=== PATIENT | female | born 1980 | race Caucasian/White ===

== ENCOUNTER 2019-12-31 04:53 | Inpatient (IN) | payer MEDICAID, OTHER ==
[~2019-12-31] VITALS: Ht 157.5 cm; Wt 70.3 kg
[~2019-12-31 04:53] MED LIST: DIPH25 PO; GABA-1181 PO; LISI-660 PO; LITH300C3 PO; OXCA300T57 PO; SERT100T12 PO; TRAZ-257 PO
[2019-12-31] MEDS ORDERED: IBUP-2071 PO (05:06)
[2019-12-31] MEDS ORDERED: CLON0.1T83 PO (05:06)
[2019-12-31] MEDS ORDERED: KETOROLAC TROMETHAMINE 30 MG/ML VIAL IM ONE (05:30)
[2019-12-31] MEDS ORDERED: CeFAZolin 1 GM/DEXTROSE 50 ML IV ONE (07:00)
[2019-12-31] MEDS ORDERED: ONDANSETRON HCL 4 MG/2 ML VIAL IVP PRN (07:15)
[2019-12-31] MEDS ORDERED: ACETAMINOPHEN 325 MG TABLET PO PRN ×2 (07:15→08:00)
[2019-12-31] MEDS ORDERED: 0.9% SODIUM CHLORIDE 10 ML SYRINGE IVP PRN ×2 (07:15→08:00)
[2019-12-31 07:36] LABS: BASOPHILS % (AUTO) 0.6 % (0.0-2.0); EOSINOPHILS % (AUTO) 0.7 % (1.0-6.0); HEMATOCRIT 37.3 % (36-46); HEMOGLOBIN 12.1 g/dL (12.0-16.0); LYMPHOCYTES # (AUTO) 2.2 K/uL (1.0-4.8); LYMPHOCYTES % (AUTO) 18.3 % (22.0-44.0); MEAN CORPUSCULAR HEMOGLOBIN 26.9 pg (26.0-34.0); MEAN CORPUSCULAR HGB CONC 32.6 G/dL (31.0-37.0); MEAN CORPUSCULAR VOLUME 83 fL (80-100); MONOCYTES # (AUTO) 1.4 K/uL (0.1-1.0); MONOCYTES % (AUTO) 11.2 % (2.0-9.0); NEUTROPHILS # (AUTO) 8.5 K/uL (1.8-7.7); NEUTROPHILS % (AUTO) 69.2 % (40.0-70.0); RED BLOOD CELL COUNT(AUTO) 4.52 MIL/uL (4.00-5.20); RED CELL DISTRIBUTION WIDTH 14.9 % (11.5-14.5)
[2019-12-31 07:42] LABS: ANION GAP 8 mmol/L (8-16); CALCIUM, TOTAL 8.3 mg/dL (8.8-10.5); CARBON DIOXIDE 26 mmol/L (22-29); CHLORIDE 104 mmol/L (98-107); CREATININE 0.74 mg/dL (0.60-1.30); GLOMERULAR FILTR. RATE CALC > 60 mL/min (>60); GLUCOSE,RANDOM 107 mg/dL (70-110); POTASSIUM 3.4 mmol/L (3.5-5.1); SODIUM SERUM 138 mmol/L (136-145); UREA NITROGEN, BLOOD 8 mg/dL (7-18)
[2019-12-31 07:48] LABS: ALANINE AMINOTRANSFERASE 19 U/L (12-78); ALBUMIN 2.5 g/dL (3.4-5.0); ALKALINE PHOSPHATASE 69 U/L (46-116); ASPARTATE AMINOTRANSFERASE 23 U/L (15-37); BILIRUBIN,TOTAL 0.3 mg/dL (0.1-1.0)
[2019-12-31] MEDS ORDERED: SODIUM CHLORIDE 0.9% 1,000 ML IV SCH (08:00)
[2019-12-31] MEDS ORDERED: BISACODYL 10 MG RECTAL RECTAL SUPPOSITORY PR PRN (08:00)
[2019-12-31] MEDS ORDERED: ALBUTEROL SULFATE 2.5 MG/0.5 ML NEB SOLUTION NEB PRN (08:00)
[2019-12-31] MEDS ORDERED: IPRATROPIUM BROMIDE 0.5 MG/2.5 ML NEB SOLUTION NEB PRN (08:00)
[2019-12-31] MEDS ORDERED: DOCUSATE SODIUM 100 MG CAPSULE PO PRN (08:00)
[2019-12-31] MEDS ORDERED: MORPHINE SULFATE 2 MG/ML SYRINGE IVP PRN (08:00)
[2019-12-31] MEDS ORDERED: MAGNESIUM HYDROXIDE SUSPENSION 30 ML UDCUP PO PRN (08:00)
[2019-12-31] MEDS ORDERED: POTASSIUM CHLORIDE 10% 40 MEQ/30 ML LIQUID UDCUP PO ONE (08:30)
[2019-12-31 08:47] VITALS: BP 138/83
[2019-12-31] MEDS ORDERED: IOVERSOL 320 MG/ML 100 ML VIAL ONE (08:47)
[2019-12-31] MEDS ORDERED: SODIUM CHLORIDE 0.9% 100 ML ONE (08:47)
[2019-12-31 08:57] LABS: PLATELET COUNT (AUTO) 772 K/uL (150-450)
[2019-12-31] MEDS: CloNIDine HCL 0.1 MG TABLET PO SCH ×3 (09:00→21:01)
[2019-12-31] MEDS: PANTOPRAZOLE SODIUM 40 MG DR TABLET PO SCH (09:00)
[2019-12-31] MEDS: ONDANSETRON HCL 4 MG/2 ML VIAL IVP PRN (09:17)
[2019-12-31 09:35] LABS: APPEARANCE,URINE CLEAR (CLEAR); BILIRUBIN,URINE NEGATIVE (NEGATIVE); GLUCOSE, URINE (UA) NEGATIVE (NEGATIVE); KETONES,URINE NEGATIVE (NEGATIVE); LEUKOCYTE ESTERASE ,URINE NEGATIVE (NEGATIVE); NITRATE,URINE NEGATIVE (NEGATIVE); OCCULT BLOOD,URINE NEGATIVE (NEGATIVE); PH,URINE 6.5 (5.0-8.0); PROTEIN,URINE NEGATIVE (NEGATIVE); UROBILINOGEN,URINE 0.2 mg/dL (<=1.0)
[2019-12-31 09:41] LABS: AMPHET/METH SCREEN,URINE NEGATIVE (NEGATIVE); BARBITURATE SCREEN, URINE NEGATIVE (NEGATIVE); BENZODIAZEPINES SCREEN,URINE NEGATIVE (NEGATIVE); CANNABINOID SCREEN,URINE POSITIVE (NEGATIVE); COCAINE SCREEN,URINE NEGATIVE (NEGATIVE); METHADONE SCREEN, URINE NEGATIVE (NEGATIVE); OPIATE SCREEN,URINE POSITIVE (NEGATIVE); PHENCYCLIDINE SCREEN,URINE NEGATIVE (NEGATIVE)
[2019-12-31 11:22] LABS: COVID AG,FIA SOURCE NASOPHARYNGEAL
[2019-12-31] MEDS ORDERED: RINGERS SOLUTION,LACTATED 1,000 ML IV ONE (11:26)
[2019-12-31] MEDS ORDERED: BUPIVACAINE/EPI/PF 0.5% 30 ML VIAL ONE (11:50)
[2019-12-31] MEDS ORDERED: BUPIVACAINE HCL/PF 0.25% 30 ML VIAL ONE (11:50)
[2019-12-31] MEDS ORDERED: SUGAMMADEX SODIUM 200 MG/2 ML VIAL IVP ONE (11:53)
[2019-12-31] MEDS ORDERED: MEPERIDINE-PF 25 MG/ML VIAL IVP PRN (12:00)
[2019-12-31] MEDS ORDERED: ONDANSETRON HCL 4 MG/2 ML VIAL IVP ONE (12:00)
[2019-12-31] MEDS ORDERED: FentaNYL CITRATE-PF 100 MCG/2 ML VIAL IVP PRN (12:00)
[2019-12-31] MEDS ORDERED: ROCURONIUM BROMIDE 10 MG/ML 5 ML VIAL IVP ONE (12:00)
[2019-12-31] MEDS ORDERED: LIDOCAINE/PF 2% 5 ML VIAL INJ ONE (12:00)
[2019-12-31] MEDS ORDERED: KETAMINE HCL 50 MG/ML 10 ML VIAL IVP ONE (12:00)
[2019-12-31] MEDS ORDERED: PROPOFOL 1% 20 ML VIAL IVP ONE (12:00)
[2019-12-31] MEDS ORDERED: DEXAMETHASONE SOD PHOS 4 MG/ML VIAL IVP ONE (12:00)
[2019-12-31] MEDS ORDERED: MIDAZOLAM HCL 2 MG/2 ML VIAL IVP ONE (12:00)
[2019-12-31] MEDS ORDERED: FentaNYL CITRATE-PF 100 MCG/2 ML VIAL IVP ONE (12:00)
[2019-12-31] MEDS: FAMOTIDINE 20 MG TABLET PO SCH ×2 (12:15→21:01)
[2019-12-31] MEDS ORDERED: HYDROmorphone 2 MG/ML SYRINGE ONE (12:24)
[2019-12-31] MEDS: HYDROmorphone 2 MG/ML SYRINGE IVP PRN ×5 (12:27→22:23)
[2019-12-31] MEDS: CefTRIAXone SODIUM 2 GM in DEXTROSE 5%-WATER 50 ML IV SCH (13:48)
[2019-12-31 19:22] VITALS: BP 106/58
[2019-12-31 19:25] VITALS: BP 106/58
[2019-12-31] MEDS: TraZODone HCL 50 MG TABLET PO SCH (21:01)
[2020-01-01] MEDS: MORPHINE SULFATE 4 MG/ML SYRINGE IVP PRN ×4 (00:14→22:11)
[2020-01-01] MEDS: HYDROmorphone 2 MG/ML SYRINGE IVP PRN ×3 (03:17→20:45)
[2020-01-01 04:22] VITALS: BP 94/63
[2020-01-01] MEDS: ONDANSETRON HCL 4 MG/2 ML VIAL IVP PRN (06:20)
[2020-01-01] MEDS: PANTOPRAZOLE SODIUM 40 MG DR TABLET PO SCH (08:06)
[2020-01-01] MEDS: FAMOTIDINE 20 MG TABLET PO SCH ×2 (08:06→20:19)
[2020-01-01] MEDS: CloNIDine HCL 0.1 MG TABLET PO SCH ×3 (08:06→20:18)
[2020-01-01 08:16] VITALS: BP 117/57
[2020-01-01] MEDS: ALPRAZolam 0.25 MG TABLET PO PRN ×2 (11:11→11:14)
[2020-01-01 11:15] VITALS: BP 102/71
[2020-01-01 12:29] LABS: BASOPHILS % (AUTO) 0.7 % (0.0-2.0); EOSINOPHILS % (AUTO) 1.6 % (1.0-6.0); HEMOGLOBIN 12.2 g/dL (12.0-16.0); LYMPHOCYTES # (AUTO) 2.7 K/uL (1.0-4.8); LYMPHOCYTES % (AUTO) 24.3 % (22.0-44.0); MEAN CORPUSCULAR HEMOGLOBIN 26.7 pg (26.0-34.0); MEAN CORPUSCULAR HGB CONC 32.2 G/dL (31.0-37.0); MEAN CORPUSCULAR VOLUME 83 fL (80-100); MONOCYTES # (AUTO) 0.8 K/uL (0.1-1.0); MONOCYTES % (AUTO) 7.4 % (2.0-9.0); NEUTROPHILS # (AUTO) 7.3 K/uL (1.8-7.7); PLATELET COUNT (AUTO) 675 K/uL (150-450); RED BLOOD CELL COUNT(AUTO) 4.58 MIL/uL (4.00-5.20); RED CELL DISTRIBUTION WIDTH 14.9 % (11.5-14.5)
[2020-01-01 12:41] LABS: ANION GAP 5 mmol/L (8-16); CALCIUM, TOTAL 8.6 mg/dL (8.8-10.5); CARBON DIOXIDE 28 mmol/L (22-29); CHLORIDE 104 mmol/L (98-107); CREATININE 0.82 mg/dL (0.60-1.30); GLOMERULAR FILTR. RATE CALC > 60 mL/min (>60); GLUCOSE,RANDOM 93 mg/dL (70-110); POTASSIUM 3.2 mmol/L (3.5-5.1); SODIUM SERUM 137 mmol/L (136-145); UREA NITROGEN, BLOOD 12 mg/dL (7-18)
[2020-01-01] MEDS: CefTRIAXone SODIUM 2 GM in DEXTROSE 5%-WATER 50 ML IV SCH (13:55)
[2020-01-01] MEDS ORDERED: POTASSIUM CHLORIDE 10% 40 MEQ/30 ML LIQUID UDCUP PO ONE (14:15)
[2020-01-01] MEDS ORDERED: SODIUM CL IRRIG SOLN BOTTLE 250 ML IRRIG ONE (14:52)
[2020-01-01 15:20] VITALS: BP 138/61
[2020-01-01] MEDS: CLINDAMYCIN 600 MG/D5% WATER 50 ML IV SCH ×2 (16:13→23:25)
[2020-01-01 20:06] VITALS: BP 94/44
[2020-01-01] MEDS: TraZODone HCL 50 MG TABLET PO SCH (20:19)
[2020-01-02] VITALS (7 sets, daily range): BP systolic 109–135; BP diastolic 62–80
[2020-01-02] MEDS: MORPHINE SULFATE 4 MG/ML SYRINGE IVP PRN ×4 (02:48→22:32)
[2020-01-02] MEDS: HYDROmorphone 2 MG/ML SYRINGE IVP PRN ×6 (03:30→20:51)
[2020-01-02 06:16] LABS: BASOPHILS % (AUTO) 0.6 % (0.0-2.0); EOSINOPHILS % (AUTO) 1.8 % (1.0-6.0); HEMATOCRIT 41.4 % (36-46); HEMOGLOBIN 13.2 g/dL (12.0-16.0); LYMPHOCYTES # (AUTO) 1.6 K/uL (1.0-4.8); LYMPHOCYTES % (AUTO) 10.4 % (22.0-44.0); MEAN CORPUSCULAR HEMOGLOBIN 26.5 pg (26.0-34.0); MEAN CORPUSCULAR HGB CONC 31.9 G/dL (31.0-37.0); MEAN CORPUSCULAR VOLUME 83 fL (80-100); MONOCYTES # (AUTO) 0.9 K/uL (0.1-1.0); NEUTROPHILS # (AUTO) 12.7 K/uL (1.8-7.7); NEUTROPHILS % (AUTO) 81.2 % (40.0-70.0); PLATELET COUNT (AUTO) 664 K/uL (150-450); RED BLOOD CELL COUNT(AUTO) 4.99 MIL/uL (4.00-5.20); RED CELL DISTRIBUTION WIDTH 15.2 % (11.5-14.5)
[2020-01-02] MEDS: ALPRAZolam 0.25 MG TABLET PO PRN (06:23)
[2020-01-02 06:54] LABS: ANION GAP 10 mmol/L (8-16); CALCIUM, TOTAL 8.6 mg/dL (8.8-10.5); CARBON DIOXIDE 25 mmol/L (22-29); CHLORIDE 101 mmol/L (98-107); CREATININE 0.83 mg/dL (0.60-1.30); GLOMERULAR FILTR. RATE CALC > 60 mL/min (>60); GLUCOSE,RANDOM 96 mg/dL (70-110); POTASSIUM 4.8 mmol/L (3.5-5.1); SODIUM SERUM 136 mmol/L (136-145); UREA NITROGEN, BLOOD 13 mg/dL (7-18)
[2020-01-02] MEDS: CLINDAMYCIN 600 MG/D5% WATER 50 ML IV SCH ×2 (08:54→16:00)
[2020-01-02] MEDS: CloNIDine HCL 0.1 MG TABLET PO SCH ×3 (08:54→21:00)
[2020-01-02] MEDS: FAMOTIDINE 20 MG TABLET PO SCH ×2 (08:54→20:51)
[2020-01-02] MEDS: PANTOPRAZOLE SODIUM 40 MG DR TABLET PO SCH (08:58)
[2020-01-02] MEDS: CefTRIAXone 1 GM/DEXTROSE 50 ML IV SCH (13:55)
[2020-01-02] MEDS: ONDANSETRON HCL 4 MG/2 ML VIAL IVP PRN (18:02)
[2020-01-02] MEDS: TraZODone HCL 50 MG TABLET PO SCH (20:51)
[2020-01-03] MEDS: CLINDAMYCIN 600 MG/D5% WATER 50 ML IV SCH ×2 (00:47→09:17)
[2020-01-03] MEDS: HYDROmorphone 2 MG/ML SYRINGE IVP PRN ×6 (00:48→20:38)
[2020-01-03 04:50] VITALS: BP 125/66
[2020-01-03] MEDS: MORPHINE SULFATE 4 MG/ML SYRINGE IVP PRN ×5 (04:50→22:25)
[2020-01-03 06:20] LABS: BASOPHILS % (AUTO) 0.4 % (0.0-2.0); EOSINOPHILS % (AUTO) 1.2 % (1.0-6.0); HEMATOCRIT 35.9 % (36-46); HEMOGLOBIN 11.7 g/dL (12.0-16.0); LYMPHOCYTES # (AUTO) 1.9 K/uL (1.0-4.8); LYMPHOCYTES % (AUTO) 11.6 % (22.0-44.0); MEAN CORPUSCULAR HGB CONC 32.6 G/dL (31.0-37.0); MEAN CORPUSCULAR VOLUME 83 fL (80-100); MONOCYTES # (AUTO) 1.9 K/uL (0.1-1.0); MONOCYTES % (AUTO) 11.3 % (2.0-9.0); NEUTROPHILS # (AUTO) 12.6 K/uL (1.8-7.7); NEUTROPHILS % (AUTO) 75.5 % (40.0-70.0); PLATELET COUNT (AUTO) 629 K/uL (150-450); RED BLOOD CELL COUNT(AUTO) 4.35 MIL/uL (4.00-5.20); RED CELL DISTRIBUTION WIDTH 15.1 % (11.5-14.5)
[2020-01-03 06:34] LABS: ALANINE AMINOTRANSFERASE 9 U/L (12-78); ALBUMIN 2.1 g/dL (3.4-5.0); ALKALINE PHOSPHATASE 67 U/L (46-116); ANION GAP 8 mmol/L (8-16); ASPARTATE AMINOTRANSFERASE 11 U/L (15-37); BILIRUBIN,TOTAL 0.3 mg/dL (0.1-1.0); CALCIUM, TOTAL 8.6 mg/dL (8.8-10.5); CARBON DIOXIDE 26 mmol/L (22-29); CHLORIDE 103 mmol/L (98-107); CREATININE 0.67 mg/dL (0.60-1.30); GLOMERULAR FILTR. RATE CALC > 60 mL/min (>60); GLUCOSE,RANDOM 102 mg/dL (70-110); POTASSIUM 3.7 mmol/L (3.5-5.1); SODIUM SERUM 137 mmol/L (136-145); TOTAL PROTEIN, SERUM 6.3 g/dL (6.4-8.2); UREA NITROGEN, BLOOD 10 mg/dL (7-18)
[2020-01-03] MEDS: FAMOTIDINE 20 MG TABLET PO SCH ×2 (07:57→20:39)
[2020-01-03] MEDS: CloNIDine HCL 0.1 MG TABLET PO SCH ×4 (07:57→20:44)
[2020-01-03] MEDS: HYDROCODONE/ACETAMINOPHEN 5-325 MG TABLET PO PRN (07:57)
[2020-01-03] MEDS: OXYGEN THERAPY IH SCH ×2 (08:00→20:00)
[2020-01-03 08:01] VITALS: BP 143/74
[2020-01-03] MEDS: PANTOPRAZOLE SODIUM 40 MG DR TABLET PO SCH (08:07)
[2020-01-03] MEDS: ONDANSETRON HCL 4 MG/2 ML VIAL IVP PRN (09:18)
[2020-01-03] MEDS ORDERED: SODIUM CHLORIDE 0.9% 1,000 ML IV ONE (12:15)
[2020-01-03] MEDS ORDERED: VANCOMYCIN HCL 1.5 GM in DEXTROSE 5%-WATER 250 ML IV ONE (13:00)
[2020-01-03] MEDS: CefTRIAXone 1 GM/DEXTROSE 50 ML IV SCH (15:00)
[2020-01-03 16:16] VITALS: BP 114/56
[2020-01-03] MEDS: TraZODone HCL 50 MG TABLET PO SCH (20:39)
[2020-01-03 20:49] VITALS: BP 94/62
[2020-01-03] MEDS: VANCOMYCIN HCL 1 GM/D5% WATER 200 ML IV SCH (23:32)
[2020-01-04] MEDS: HYDROmorphone 2 MG/ML SYRINGE IVP PRN ×6 (00:23→22:34)
[2020-01-04] MEDS: ALPRAZolam 0.25 MG TABLET PO PRN (00:24)
[2020-01-04 05:10] VITALS: BP 115/74
[2020-01-04] MEDS: ONDANSETRON HCL 4 MG/2 ML VIAL IVP PRN (05:55)
[2020-01-04] MEDS: MORPHINE SULFATE 4 MG/ML SYRINGE IVP PRN ×2 (06:47→12:33)
[2020-01-04] MEDS: OXYGEN THERAPY IH SCH ×3 (08:00→20:00)
[2020-01-04 08:37] VITALS: BP 135/90
[2020-01-04] MEDS: VANCOMYCIN HCL 1 GM/D5% WATER 200 ML IV SCH ×3 (09:12→23:51)
[2020-01-04] MEDS: CloNIDine HCL 0.1 MG TABLET PO SCH ×3 (09:13→21:00)
[2020-01-04] MEDS: FAMOTIDINE 20 MG TABLET PO SCH ×2 (09:13→19:47)
[2020-01-04] MEDS: PANTOPRAZOLE SODIUM 40 MG DR TABLET PO SCH (09:13)
[2020-01-04 11:05] LABS: BASOPHILS % (AUTO) 0.5 % (0.0-2.0); EOSINOPHILS % (AUTO) 1.2 % (1.0-6.0); HEMATOCRIT 35.7 % (36-46); HEMOGLOBIN 11.7 g/dL (12.0-16.0); LYMPHOCYTES # (AUTO) 1.3 K/uL (1.0-4.8); LYMPHOCYTES % (AUTO) 9.6 % (22.0-44.0); MEAN CORPUSCULAR HEMOGLOBIN 27.4 pg (26.0-34.0); MEAN CORPUSCULAR HGB CONC 32.9 G/dL (31.0-37.0); MEAN CORPUSCULAR VOLUME 83 fL (80-100); MONOCYTES # (AUTO) 1.3 K/uL (0.1-1.0); MONOCYTES % (AUTO) 9.8 % (2.0-9.0); NEUTROPHILS # (AUTO) 10.4 K/uL (1.8-7.7); NEUTROPHILS % (AUTO) 78.9 % (40.0-70.0); PLATELET COUNT (AUTO) 638 K/uL (150-450); RED BLOOD CELL COUNT(AUTO) 4.29 MIL/uL (4.00-5.20); RED CELL DISTRIBUTION WIDTH 15.5 % (11.5-14.5)
[2020-01-04 11:19] LABS: PROTHROMBIN TIME 10.9 SEC (9.4-11.6)
[2020-01-04 11:29] LABS: ALANINE AMINOTRANSFERASE 11 U/L (12-78); ALBUMIN 1.8 g/dL (3.4-5.0); ALKALINE PHOSPHATASE 62 U/L (46-116); ANION GAP 5 mmol/L (8-16); ASPARTATE AMINOTRANSFERASE 11 U/L (15-37); BILIRUBIN,TOTAL 0.2 mg/dL (0.1-1.0); CARBON DIOXIDE 25 mmol/L (22-29); CHLORIDE 107 mmol/L (98-107); CREATININE 0.62 mg/dL (0.60-1.30); GLOMERULAR FILTR. RATE CALC > 60 mL/min (>60); GLUCOSE,RANDOM 111 mg/dL (70-110); POTASSIUM 3.9 mmol/L (3.5-5.1); SODIUM SERUM 137 mmol/L (136-145); TOTAL PROTEIN, SERUM 6.4 g/dL (6.4-8.2); UREA NITROGEN, BLOOD 8 mg/dL (7-18)
[2020-01-04] MEDS: SODIUM CHLORIDE 0.9% 1,000 ML IV SCH (11:32)
[2020-01-04] MEDS: CefTRIAXone 1 GM/DEXTROSE 50 ML IV SCH (14:07)
[2020-01-04] MEDS: MULTIVITAMINS WITH MINERALS, THERAPEUTIC TABLET PO SCH (14:15)
[2020-01-04] MEDS ORDERED: BUPIVACAINE/EPI/PF 0.5% 30 ML VIAL ONE (15:04)
[2020-01-04 16:00] VITALS: BP 102/58
[2020-01-04] MEDS ORDERED: RINGERS SOLUTION,LACTATED 1,000 ML IV ONE ×2 (16:00→16:56)
[2020-01-04] MEDS ORDERED: FentaNYL CITRATE-PF 100 MCG/2 ML VIAL IVP PRN (16:30)
[2020-01-04] MEDS ORDERED: HYDROmorphone 2 MG/ML SYRINGE IVP PRN (16:30)
[2020-01-04] MEDS ORDERED: MEPERIDINE-PF 25 MG/ML VIAL IVP PRN (16:30)
[2020-01-04] MEDS ORDERED: BACITRACIN 50,000 UNITS/VIAL ONE (17:30)
[2020-01-04] MEDS ORDERED: HYDROmorphone 2 MG/ML SYRINGE ONE (18:17)
[2020-01-04] MEDS ORDERED: MEPERIDINE-PF 25 MG/ML VIAL ONE (18:27)
[2020-01-04] MEDS: TraZODone HCL 50 MG TABLET PO SCH (19:47)
[2020-01-04 20:30] VITALS: BP 113/60
[2020-01-05] MEDS: HYDROmorphone 2 MG/ML SYRINGE IVP PRN ×5 (01:54→19:43)
[2020-01-05] MEDS: SODIUM CHLORIDE 0.9% 1,000 ML IV SCH ×2 (03:11→20:36)
[2020-01-05 05:35] VITALS: BP 113/75
[2020-01-05 06:55] LABS: ANION GAP 12 mmol/L (8-16); CALCIUM, TOTAL 8.2 mg/dL (8.8-10.5); CARBON DIOXIDE 27 mmol/L (22-29); CHLORIDE 102 mmol/L (98-107); CREATININE 0.74 mg/dL (0.60-1.30); GLOMERULAR FILTR. RATE CALC > 60 mL/min (>60); GLUCOSE,RANDOM 111 mg/dL (70-110); POTASSIUM 3.9 mmol/L (3.5-5.1); SODIUM SERUM 141 mmol/L (136-145); UREA NITROGEN, BLOOD 11 mg/dL (7-18)
[2020-01-05 08:00] VITALS: BP 130/77
[2020-01-05] MEDS: OXYGEN THERAPY IH SCH (08:00)
[2020-01-05] MEDS: PANTOPRAZOLE SODIUM 40 MG DR TABLET PO SCH (08:03)
[2020-01-05] MEDS: MULTIVITAMINS WITH MINERALS, THERAPEUTIC TABLET PO SCH (08:03)
[2020-01-05] MEDS: HYDROCODONE/ACETAMINOPHEN 5-325 MG TABLET PO PRN (08:03)
[2020-01-05] MEDS: VANCOMYCIN HCL 1 GM/D5% WATER 200 ML IV SCH ×3 (08:03→23:27)
[2020-01-05] MEDS: FAMOTIDINE 20 MG TABLET PO SCH ×2 (08:03→20:13)
[2020-01-05] MEDS: CloNIDine HCL 0.1 MG TABLET PO SCH ×3 (08:03→20:13)
[2020-01-05 08:31] LABS: BASOPHILS % (AUTO) 1.2 % (0.0-2.0); EOSINOPHILS % (AUTO) 2.5 % (1.0-6.0); HEMATOCRIT 36.9 % (36-46); HEMOGLOBIN 12.1 g/dL (12.0-16.0); LYMPHOCYTES # (AUTO) 1.7 K/uL (1.0-4.8); LYMPHOCYTES % (AUTO) 18.7 % (22.0-44.0); MEAN CORPUSCULAR HGB CONC 32.6 G/dL (31.0-37.0); MEAN CORPUSCULAR VOLUME 83 fL (80-100); MONOCYTES % (AUTO) 11.6 % (2.0-9.0); NEUTROPHILS # (AUTO) 5.8 K/uL (1.8-7.7); PLATELET COUNT (AUTO) 693 K/uL (150-450); RED BLOOD CELL COUNT(AUTO) 4.47 MIL/uL (4.00-5.20); RED CELL DISTRIBUTION WIDTH 15.3 % (11.5-14.5)
[2020-01-05] MEDS: MORPHINE SULFATE 4 MG/ML SYRINGE IVP PRN ×2 (11:16→20:36)
[2020-01-05] MEDS: CefTRIAXone 1 GM/DEXTROSE 50 ML IV SCH (14:53)
[2020-01-05 16:00] VITALS: BP 125/75
[2020-01-05] MEDS: TraZODone HCL 50 MG TABLET PO SCH (20:13)
[2020-01-05] MEDS: ALPRAZolam 0.25 MG TABLET PO PRN (20:13)
[2020-01-05 20:20] VITALS: BP 114/76
[2020-01-06 00:20] VITALS: BP 106/76
[2020-01-06] MEDS: HYDROmorphone 2 MG/ML SYRINGE IVP PRN ×7 (01:21→23:02)
[2020-01-06 06:05] VITALS: BP 133/85
[2020-01-06 06:35] LABS: BASOPHILS % (AUTO) 1.2 % (0.0-2.0); EOSINOPHILS % (AUTO) 3.7 % (1.0-6.0); HEMATOCRIT 35.8 % (36-46); HEMOGLOBIN 11.7 g/dL (12.0-16.0); LYMPHOCYTES # (AUTO) 1.7 K/uL (1.0-4.8); LYMPHOCYTES % (AUTO) 22.9 % (22.0-44.0); MEAN CORPUSCULAR HEMOGLOBIN 27.4 pg (26.0-34.0); MEAN CORPUSCULAR HGB CONC 32.6 G/dL (31.0-37.0); MEAN CORPUSCULAR VOLUME 84 fL (80-100); NEUTROPHILS # (AUTO) 4.4 K/uL (1.8-7.7); NEUTROPHILS % (AUTO) 59.2 % (40.0-70.0); RED BLOOD CELL COUNT(AUTO) 4.25 MIL/uL (4.00-5.20); RED CELL DISTRIBUTION WIDTH 15.9 % (11.5-14.5)
[2020-01-06] MEDS ORDERED: FentaNYL CITRATE-PF 100 MCG/2 ML VIAL IVP ONE (06:35)
[2020-01-06] MEDS ORDERED: MIDAZOLAM HCL 2 MG/2 ML VIAL IVP ONE (06:35)
[2020-01-06 06:45] LABS: ANION GAP 6 mmol/L (8-16); CALCIUM, TOTAL 8.4 mg/dL (8.8-10.5); CARBON DIOXIDE 25 mmol/L (22-29); CHLORIDE 110 mmol/L (98-107); CREATININE 0.69 mg/dL (0.60-1.30); GLOMERULAR FILTR. RATE CALC > 60 mL/min (>60); GLUCOSE,RANDOM 112 mg/dL (70-110); POTASSIUM 4.4 mmol/L (3.5-5.1); SODIUM SERUM 141 mmol/L (136-145); UREA NITROGEN, BLOOD 11 mg/dL (7-18)
[2020-01-06 07:02] LABS: PLATELET COUNT (AUTO) 560 K/uL (150-450)
[2020-01-06] MEDS: CloNIDine HCL 0.1 MG TABLET PO SCH ×3 (07:56→19:49)
[2020-01-06] MEDS: FAMOTIDINE 20 MG TABLET PO SCH ×2 (07:56→19:49)
[2020-01-06] MEDS: MULTIVITAMINS WITH MINERALS, THERAPEUTIC TABLET PO SCH (07:56)
[2020-01-06] MEDS: VANCOMYCIN HCL 1 GM/D5% WATER 200 ML IV SCH ×3 (07:56→23:06)
[2020-01-06] MEDS: PANTOPRAZOLE SODIUM 40 MG DR TABLET PO SCH (07:56)
[2020-01-06] MEDS: HYDROCODONE/ACETAMINOPHEN 5-325 MG TABLET PO PRN (07:57)
[2020-01-06] MEDS: OXYGEN THERAPY IH SCH ×2 (08:00→20:00)
[2020-01-06 08:15] VITALS: BP 133/77
[2020-01-06] MEDS: CefTRIAXone 1 GM/DEXTROSE 50 ML IV SCH (13:36)
[2020-01-06 16:10] VITALS: BP 134/84
[2020-01-06] MEDS: TraZODone HCL 50 MG TABLET PO SCH (19:49)
[2020-01-06 20:38] VITALS: BP 107/79
[2020-01-06] MEDS: SODIUM CHLORIDE 0.9% 1,000 ML IV SCH (21:04)
[2020-01-07] MEDS: HYDROmorphone 2 MG/ML SYRINGE IVP PRN ×7 (02:08→21:08)
[2020-01-07 05:04] VITALS: BP 120/82
[2020-01-07 07:44] VITALS: BP 121/79
[2020-01-07] MEDS: OXYGEN THERAPY IH SCH (08:00)
[2020-01-07] MEDS: FAMOTIDINE 20 MG TABLET PO SCH ×2 (08:10→21:07)
[2020-01-07] MEDS: VANCOMYCIN HCL 1 GM/D5% WATER 200 ML IV SCH ×2 (08:10→15:54)
[2020-01-07] MEDS: CloNIDine HCL 0.1 MG TABLET PO SCH ×3 (08:10→21:00)
[2020-01-07] MEDS: PANTOPRAZOLE SODIUM 40 MG DR TABLET PO SCH (08:10)
[2020-01-07] MEDS: MULTIVITAMINS WITH MINERALS, THERAPEUTIC TABLET PO SCH (08:10)
[2020-01-07] MEDS: MORPHINE SULFATE 4 MG/ML SYRINGE IVP PRN ×2 (09:34→22:41)
[2020-01-07 10:03] LABS: ANION GAP 10 mmol/L (8-16); CALCIUM, TOTAL 8.5 mg/dL (8.8-10.5); CARBON DIOXIDE 25 mmol/L (22-29); CHLORIDE 105 mmol/L (98-107); CREATININE 0.72 mg/dL (0.60-1.30); GLOMERULAR FILTR. RATE CALC > 60 mL/min (>60); GLUCOSE,RANDOM 131 mg/dL (70-110); POTASSIUM 4.1 mmol/L (3.5-5.1); SODIUM SERUM 140 mmol/L (136-145); UREA NITROGEN, BLOOD 11 mg/dL (7-18)
[2020-01-07 10:06] LABS: EOSINOPHILS % (AUTO) 3.4 % (1.0-6.0); HEMATOCRIT 32.1 % (36-46); HEMOGLOBIN 10.2 g/dL (12.0-16.0); LYMPHOCYTES # (AUTO) 2.2 K/uL (1.0-4.8); LYMPHOCYTES % (AUTO) 23.1 % (22.0-44.0); MEAN CORPUSCULAR HEMOGLOBIN 26.4 pg (26.0-34.0); MEAN CORPUSCULAR HGB CONC 31.9 G/dL (31.0-37.0); MEAN CORPUSCULAR VOLUME 83 fL (80-100); MONOCYTES # (AUTO) 0.9 K/uL (0.1-1.0); MONOCYTES % (AUTO) 9.1 % (2.0-9.0); NEUTROPHILS # (AUTO) 5.9 K/uL (1.8-7.7); NEUTROPHILS % (AUTO) 63.4 % (40.0-70.0); PLATELET COUNT (AUTO) 538 K/uL (150-450); RED BLOOD CELL COUNT(AUTO) 3.88 MIL/uL (4.00-5.20); RED CELL DISTRIBUTION WIDTH 15.7 % (11.5-14.5)
[2020-01-07] MEDS: CefTRIAXone 1 GM/DEXTROSE 50 ML IV SCH (13:44)
[2020-01-07 19:00] VITALS: BP 113/66
[2020-01-07] MEDS: TraZODone HCL 50 MG TABLET PO SCH (21:07)
[2020-01-08] MEDS: VANCOMYCIN HCL 1 GM/D5% WATER 200 ML IV SCH ×2 (03:21→07:59)
[2020-01-08] MEDS: HYDROmorphone 2 MG/ML SYRINGE IVP PRN ×2 (03:21→08:07)
[2020-01-08] MEDS: MORPHINE SULFATE 4 MG/ML SYRINGE IVP PRN ×2 (04:48→06:21)
[2020-01-08] MEDS: MULTIVITAMINS WITH MINERALS, THERAPEUTIC TABLET PO SCH (07:58)
[2020-01-08] MEDS: PANTOPRAZOLE SODIUM 40 MG DR TABLET PO SCH (07:58)
[2020-01-08] MEDS: FAMOTIDINE 20 MG TABLET PO SCH ×2 (07:58→20:19)
[2020-01-08] MEDS: CloNIDine HCL 0.1 MG TABLET PO SCH ×3 (07:59→20:19)
[2020-01-08] MEDS: OXYGEN THERAPY IH SCH ×2 (08:00→20:00)
[2020-01-08 08:10] LABS: ANION GAP 11 mmol/L (8-16); CALCIUM, TOTAL 8.5 mg/dL (8.8-10.5); CARBON DIOXIDE 25 mmol/L (22-29); CHLORIDE 104 mmol/L (98-107); CREATININE 0.76 mg/dL (0.60-1.30); GLOMERULAR FILTR. RATE CALC > 60 mL/min (>60); GLUCOSE,RANDOM 95 mg/dL (70-110); POTASSIUM 4.3 mmol/L (3.5-5.1); SODIUM SERUM 140 mmol/L (136-145); UREA NITROGEN, BLOOD 12 mg/dL (7-18); VANCOMYCIN,RANDOM 21.4 mcg/mL (25.0-50.0)
[2020-01-08 08:17] VITALS: BP 139/85
[2020-01-08 08:32] LABS: BASOPHILS % (AUTO) 0.9 % (0.0-2.0); EOSINOPHILS % (AUTO) 3.3 % (1.0-6.0); HEMATOCRIT 33.5 % (36-46); HEMOGLOBIN 10.8 g/dL (12.0-16.0); LYMPHOCYTES % (AUTO) 23.2 % (22.0-44.0); MEAN CORPUSCULAR HEMOGLOBIN 26.7 pg (26.0-34.0); MEAN CORPUSCULAR HGB CONC 32.3 G/dL (31.0-37.0); MEAN CORPUSCULAR VOLUME 83 fL (80-100); MONOCYTES # (AUTO) 1.3 K/uL (0.1-1.0); MONOCYTES % (AUTO) 10.4 % (2.0-9.0); NEUTROPHILS % (AUTO) 62.2 % (40.0-70.0); RED BLOOD CELL COUNT(AUTO) 4.06 MIL/uL (4.00-5.20); RED CELL DISTRIBUTION WIDTH 15.5 % (11.5-14.5)
[2020-01-08 08:41] LABS: PLATELET COUNT (AUTO) 439 K/uL (150-450)
[2020-01-08] MEDS ORDERED: HYDROmorphone 2 MG/ML SYRINGE IVP ONE ×4 (11:45→13:30)
[2020-01-08] MEDS: CefTRIAXone 1 GM/DEXTROSE 50 ML IV SCH (13:51)
[2020-01-08] MEDS: VANCOMYCIN HCL 1.25 GM in DEXTROSE 5%-WATER 250 ML IV SCH ×2 (15:29→23:32)
[2020-01-08] MEDS: HYDROCODONE/ACETAMINOPHEN 5-325 MG TABLET PO PRN ×2 (15:37→20:19)
[2020-01-08 16:00] VITALS: BP 136/73
[2020-01-08] MEDS: ALPRAZolam 0.25 MG TABLET PO PRN (18:19)
[2020-01-08 20:17] VITALS: BP 116/79
[2020-01-08] MEDS: TraZODone HCL 50 MG TABLET PO SCH (20:19)
[2020-01-09] MEDS: HYDROCODONE/ACETAMINOPHEN 5-325 MG TABLET PO PRN ×3 (00:35→09:49)
[2020-01-09 05:36] VITALS: BP 156/98
[2020-01-09 07:04] LABS: ANION GAP 11 mmol/L (8-16); BASOPHILS % (AUTO) 0.8 % (0.0-2.0); CARBON DIOXIDE 23 mmol/L (22-29); CHLORIDE 109 mmol/L (98-107); CREATININE 0.75 mg/dL (0.60-1.30); EOSINOPHILS % (AUTO) 2.2 % (1.0-6.0); GLOMERULAR FILTR. RATE CALC > 60 mL/min (>60); GLUCOSE,RANDOM 103 mg/dL (70-110); HEMOGLOBIN 13.3 g/dL (12.0-16.0); LYMPHOCYTES # (AUTO) 1.6 K/uL (1.0-4.8); LYMPHOCYTES % (AUTO) 17.4 % (22.0-44.0); MEAN CORPUSCULAR HEMOGLOBIN 26.5 pg (26.0-34.0); MEAN CORPUSCULAR HGB CONC 31.7 G/dL (31.0-37.0); MEAN CORPUSCULAR VOLUME 84 fL (80-100); MONOCYTES # (AUTO) 0.7 K/uL (0.1-1.0); MONOCYTES % (AUTO) 7.3 % (2.0-9.0); NEUTROPHILS # (AUTO) 6.9 K/uL (1.8-7.7); NEUTROPHILS % (AUTO) 72.3 % (40.0-70.0); PLATELET COUNT (AUTO) 583 K/uL (150-450); POTASSIUM 4.6 mmol/L (3.5-5.1); RED BLOOD CELL COUNT(AUTO) 5.02 MIL/uL (4.00-5.20); RED CELL DISTRIBUTION WIDTH 16.1 % (11.5-14.5); SODIUM SERUM 143 mmol/L (136-145); UREA NITROGEN, BLOOD 11 mg/dL (7-18)
[2020-01-09] MEDS: OXYGEN THERAPY IH SCH (08:00)
[2020-01-09 08:17] VITALS: BP 133/84
[2020-01-09] MEDS: PANTOPRAZOLE SODIUM 40 MG DR TABLET PO SCH (08:30)
[2020-01-09] MEDS: CloNIDine HCL 0.1 MG TABLET PO SCH (08:30)
[2020-01-09] MEDS: VANCOMYCIN HCL 1.25 GM in DEXTROSE 5%-WATER 250 ML IV SCH (08:30)
[2020-01-09] MEDS: ALPRAZolam 0.25 MG TABLET PO PRN (08:30)
[2020-01-09] MEDS: MULTIVITAMINS WITH MINERALS, THERAPEUTIC TABLET PO SCH (08:31)
[2020-01-09] MEDS: FAMOTIDINE 20 MG TABLET PO SCH (08:31)
[2020-01-09] MEDS: CefTRIAXone 1 GM/DEXTROSE 50 ML IV SCH (14:21)
[2020-01-09] MEDS ORDERED: TraMADol HCL 50 MG TABLET PO ONE (14:30)
[2020-01-09] MEDS ORDERED: DOXY-354 PO (14:31)
[2020-01-09] MEDS ORDERED: TRAM50TA4 PO (14:31)
== END 2020-01-09 17:00 | DRG 907 ==
LOC: EMS 04:53 → 6S 07:22
PROVIDERS: ADMIT Internal Medicine; ATTEND Internal Medicine
PROC: 0HPU0JZ Removal of Synthetic Substitute from Left Breast, Open Approach (ICD-10-PCS; principal; 2019-12-31 09:36)
PROC: 05HY33Z Insertion of Infusion Device into Upper Vein, Percutaneous Approach (ICD-10-PCS; 2020-01-03)
PROC: B54NZZA Ultrasonography of Left Upper Extremity Veins, Guidance (ICD-10-PCS; 2020-01-03)
PROC: 0HPT0JZ Removal of Synthetic Substitute from Right Breast, Open Approach (ICD-10-PCS; 2020-01-04)
PROC: 0KB70ZZ Excision of Right Upper Arm Muscle, Open Approach (ICD-10-PCS; 2020-01-04)
DX: T85.79XA Infection and inflammatory reaction due to other internal prosthetic devices, implants and grafts, initial encounter (principal); E43 Unspecified severe protein-calorie malnutrition; T85.43XA Leakage of breast prosthesis and implant, initial encounter; R65.10 Systemic inflammatory response syndrome (SIRS) of non-infectious origin without acute organ dysfunction; L02.413 Cutaneous abscess of right upper limb; Y82.8 Other medical devices associated with adverse incidents; E87.6 Hypokalemia; D47.3 Essential (hemorrhagic) thrombocythemia; N61.1 Abscess of the breast and nipple; I25.2 Old myocardial infarction; Z68.28 Body mass index [BMI] 28.0-28.9, adult; Z20.828 Contact with and (suspected) exposure to other viral communicable diseases; Z88.0 Allergy status to penicillin; F17.210 Nicotine dependence, cigarettes, uncomplicated; F12.90 Cannabis use, unspecified, uncomplicated; F31.9 Bipolar disorder, unspecified; I11.9 Hypertensive heart disease without heart failure; Y83.8 Other surgical procedures as the cause of abnormal reaction of the patient, or of later complication, without mention of misadventure at the time of the procedure; Y92.89 Other specified places as the place of occurrence of the external cause
CPT/HCPCS: 36569; 71260; 80307; 84145; 87070; 87081; 87101; 87205; 87426; 88300; 88304; J0690; J0696; J1100; J1170; J1885; J2175; J2250; J2270; J2405; J2704; J3010; J3370; J3490; J7030; J7050; J7060; J7120; 36415-L1; 36415-TC; 71045-TC; 80202-TC; 81003-TC; 84703-TC